=== PATIENT | female | born 1945 | race Caucasian/White ===

== ENCOUNTER 2023-07-18 08:47 | Inpatient (IN) | payer MEDICARE, OTHER ==
[2023-07-18] MEDS ORDERED: Sodium Chloride 0.9% 1,000 ML IV ONE (09:10)
[2023-07-18] MEDS ORDERED: Sodium Chloride 0.9% 10 ML Syringe FLUSH PRN (09:10)
[2023-07-18 09:42] LABS: HEMATOCRIT 41.6 % (37.0-47.0); MEAN CORPUSCULAR HEMOGLOBIN 30.2 pg (28.0-32.0); MEAN CORPUSCULAR HGB CONC 33.7 g/dl (32.0-36.0); MEAN CORPUSCULAR VOLUME 89.8 fl (83.0-99.0); MEAN PLATELET VOLUME 10.3 fl (9.4-12.3); PLATELET COUNT,PLT 162 K/mm3 (150-400); RED BLOOD CELL COUNT 4.63 M/mm3 (4.10-5.30); WHITE BLOOD CELL COUNT,WBC 9.89 K/mm3 (3.9-11.3)
[2023-07-18 09:57] LABS: INR 1.02; PROTHROMBIN TIME 10.9 SECONDS (9.7-12.0)
[2023-07-18] MEDS ORDERED: cefTRIAXone 2 GM in Sodium Chloride 0.9% 100 ML IV ONE (09:58)
[2023-07-18 10:04] LABS: ALANINE AMINOTRANSFERASE,ALT 24 U/L (14-59); ALBUMIN 3.6 g/dl (3.4-5.0); ALKALINE PHOSPHATASE 70 U/L (46-116); ANION GAP 13.1 (5-15); ASPARTATE AMNIOTRANSFERASE,AST 20 U/L (15-37); BLOOD UREA NITROGEN,BUN 10 mg/dL (7-18); BUN/CREATININE RATIO 14.3 (14-18); C-REACTIVE PROTEIN <0.2 mg/dL (<1.0); CALCIUM 8.8 mg/dL (8.5-10.1); CARBON DIOXIDE,CO2 27 mEq/L (21-32); CHLORIDE,CL 96 mEq/L (98-107); CREATININE 0.7 mg/dL (0.55-1.02); EST CRCL DRUG DOSING (CG) 54.79 mL/min; ESTIMATED GFR 88 mL/min (>60); GLUCOSE RANDOM 125 mg/dL (70-99); POTASSIUM,K 4.1 mEq/L (3.5-5.1); PROTEIN TOTAL,TP 7.4 g/dl (6.4-8.2); SODIUM,NA 132 mEq/L (136-145)
[2023-07-18] MEDS ORDERED: Albuterol/Ipratropium 3.0-0.5 MG/3 ML Neb Soln NEB ONE (10:06)
[2023-07-18] MEDS ORDERED: methylPREDNISolone Sodium Succinate 125 MG/2 ML SDV IVPUSH ONE (10:07)
[2023-07-18 10:09] LABS: LACTIC ACID 0.6 mmol/L (0.4-2.0)
[2023-07-18 10:20] LABS: CORONAVIRUS COVID-19 NAA NEGATIVE (NEGATIVE); INFLUENZA A NAA NEGATIVE (NEGATIVE); RESPIRATORY SYNCYTIAL VIR NAA NEGATIVE (NEGATIVE)
[2023-07-18 10:46] LABS: BAND PERCENT MAN 0 % (0-10); BASOPHILS PERCENT MAN 0 (0.1-1.2); EOSINOPHILS PERCENT MAN 1 % (0.7-5.8); LYMPHOCYTES % ATYPICAL MANUAL 0 %; LYMPHOCYTES PERCENT MAN 19 % (20-40); MONOCYTES PERCENT MAN 0 % (2-10)
[2023-07-18 10:47] LABS: PLATELET COUNT ESTIMATE ADEQUATE
[2023-07-18] MEDS ORDERED: Acetaminophen 325 MG Tab PO PRN (12:29)
[2023-07-18] MEDS ORDERED: oxyCODONE 5 MG Tab PO PRN (12:29)
[2023-07-18] MEDS ORDERED: Albuterol 0.083% 2.5 MG/3 ML Neb Soln NEB PRN (12:29)
[2023-07-18] MEDS ORDERED: Docusate Sodium 100 MG Cap PO PRN (12:29)
[2023-07-18] MEDS ORDERED: Polyethylene Glycol 3350 Powder 17 GM Packet PO PRN (12:29)
[2023-07-18] MEDS ORDERED: Ondansetron 4 MG/2 ML SDV IV PRN (12:29)
[2023-07-18] MEDS: Azithromycin 500 MG in Sodium Chloride 0.9% 250 ML IV SCH (13:34)
[2023-07-18] MEDS: Enoxaparin 40 MG/0.4 ML Syringe SUBCUT SCH (13:35)
[2023-07-18] MEDS: guaiFENesin/Dextromethorphan 100-10 MG/5 ML Soln 5 ML Cup PO SCH ×2 (14:22→21:55)
[2023-07-18] MEDS: Nicotine 14 MG/24 Hr Patch TRDERM SCH (14:22)
[2023-07-18] MEDS: Albuterol/Ipratropium 3.0-0.5 MG/3 ML Neb Soln NEB SCH ×2 (14:59→20:12)
[2023-07-18 17:22] LABS: SODIUM,URINE RANDOM 16 mEq/L (40-220)
[2023-07-18 19:19] LABS: OSMOLALITY,URINE 605 mosm/kg (400-1100)
[2023-07-18] MEDS ORDERED: Iopamidol 755 Mg/ML 100 ML Bottle IVPUSH ONE (19:28)
[2023-07-18] MEDS ORDERED: Sodium Chloride 0.9% 10 ML Syringe FLUSH ONE (19:28)
[2023-07-18] MEDS: Metoprolol Succinate 25 MG Tab.ER PO SCH (21:55)
[2023-07-19 05:34] LABS: ANION GAP 15.7 (5-15); BLOOD UREA NITROGEN,BUN 10 mg/dL (7-18); BUN/CREATININE RATIO 16.7 (14-18); CALCIUM 8.8 mg/dL (8.5-10.1); CARBON DIOXIDE,CO2 24 mEq/L (21-32); CHLORIDE,CL 98 mEq/L (98-107); CREATININE 0.6 mg/dL (0.55-1.02); EST CRCL DRUG DOSING (CG) 63.92 mL/min; ESTIMATED GFR 92 mL/min (>60); GLUCOSE RANDOM 138 mg/dL (70-99); MAGNESIUM 2.1 mg/dL (1.8-2.4); SODIUM,NA 133 mEq/L (136-145)
[2023-07-19 05:47] LABS: C-REACTIVE PROTEIN < 0.2 mg/dL (<1.0)
[2023-07-19 05:49] LABS: POTASSIUM,K 4.7 mEq/L (3.5-5.1)
[2023-07-19] MEDS: Albuterol/Ipratropium 3.0-0.5 MG/3 ML Neb Soln NEB SCH ×4 (05:55→20:30)
[2023-07-19 06:11] LABS: BASOPHILS PERCENT AUTO 0.1 % (0.0-1.0); HEMATOCRIT 39.1 % (37.0-47.0); HEMOGLOBIN 12.9 gm/dl (12.0-16.0); IMMATURE GRAN ABSOLUTE AUTO 0.07 K/mm3 (0.00-0.05); IMMATURE GRAN PERCENT AUTO 0.8 % (0.0-0.4); LYMPHOCYTES ABSOLUTE AUTO 1.1 K/mm3 (1.0-4.8); MEAN CORPUSCULAR HEMOGLOBIN 29.1 pg (28.0-32.0); MEAN CORPUSCULAR VOLUME 88.1 fl (83.0-99.0); MEAN PLATELET VOLUME 12.2 fl (9.4-12.3); MONOCYTES ABSOLUTE AUTO 0.4 K/mm3 (0.0-0.8); MONOCYTES PERCENT AUTO 4.7 % (0.0-8.0); NEUTROPHILS ABSOLUTE AUTO 7.4 K/mm3 (1.8-7.7); NEUTROPHILS PERCENT AUTO 82.4 % (41.0-71.0); PLATELET COUNT,PLT 90 K/mm3 (150-400); RED BLOOD CELL COUNT 4.44 M/mm3 (4.10-5.30); WHITE BLOOD CELL COUNT,WBC 8.93 K/mm3 (3.9-11.3)
[2023-07-19 07:20] LABS: SLIDE REVIEW ABNORMAL SMEAR
[2023-07-19] MEDS: guaiFENesin/Dextromethorphan 100-10 MG/5 ML Soln 5 ML Cup PO SCH ×3 (08:26→20:02)
[2023-07-19] MEDS: Lisinopril 20 MG Tab PO SCH (08:26)
[2023-07-19] MEDS: Cholecalciferol (Vitamin D3) 25 MCG Tab PO SCH (08:26)
[2023-07-19] MEDS: predniSONE 20 MG Tab PO SCH (08:26)
[2023-07-19] MEDS: Ezetimibe 10 MG Tab PO SCH (08:27)
[2023-07-19] MEDS: Ferrous Sulfate 324 MG Tab.EC PO SCH (08:27)
[2023-07-19] MEDS: Metoprolol Succinate 25 MG Tab.ER PO SCH ×2 (08:27→20:01)
[2023-07-19] MEDS: Aspirin 81 MG Tab.Chew PO SCH (08:27)
[2023-07-19] MEDS: Nicotine 14 MG/24 Hr Patch TRDERM SCH (08:28)
[2023-07-19] MEDS: Enoxaparin 40 MG/0.4 ML Syringe SUBCUT SCH (08:36)
[2023-07-19] MEDS ORDERED: amLODIPine 10 MG Tab PO SCH ×2 (09:00→09:45)
[2023-07-19] MEDS: cefTRIAXone 2 GM in Sodium Chloride 0.9% 100 ML IV SCH (10:38)
[2023-07-19] MEDS: Azithromycin 500 MG in Sodium Chloride 0.9% 250 ML IV SCH (12:12)
[2023-07-19] MEDS: Saccharomyces Boulardii (Probiotic) 250 MG Cap PO SCH (17:21)
[2023-07-20 05:18] LABS: ANION GAP 10.2 (5-15); BLOOD UREA NITROGEN,BUN 16 mg/dL (7-18); BUN/CREATININE RATIO 22.9 (14-18); C-REACTIVE PROTEIN <0.2 mg/dL (<1.0); CALCIUM 8.7 mg/dL (8.5-10.1); CARBON DIOXIDE,CO2 29 mEq/L (21-32); CHLORIDE,CL 100 mEq/L (98-107); CREATININE 0.7 mg/dL (0.55-1.02); EST CRCL DRUG DOSING (CG) 54.79 mL/min; ESTIMATED GFR 88 mL/min (>60); GLUCOSE RANDOM 110 mg/dL (70-99); MAGNESIUM 2.3 mg/dL (1.8-2.4); POTASSIUM,K 4.2 mEq/L (3.5-5.1); SODIUM,NA 135 mEq/L (136-145)
[2023-07-20 05:38] LABS: BASOPHILS PERCENT AUTO 0.1 % (0.0-1.0); HEMATOCRIT 36.9 % (37.0-47.0); HEMOGLOBIN 12.2 gm/dl (12.0-16.0); IMMATURE GRAN PERCENT AUTO 0.8 % (0.0-0.4); LYMPHOCYTES ABSOLUTE AUTO 1.2 K/mm3 (1.0-4.8); MEAN CORPUSCULAR HGB CONC 33.1 g/dl (32.0-36.0); MEAN CORPUSCULAR VOLUME 90.9 fl (83.0-99.0); MEAN PLATELET VOLUME 10.7 fl (9.4-12.3); MONOCYTES ABSOLUTE AUTO 1.2 K/mm3 (0.0-0.8); MONOCYTES PERCENT AUTO 9.4 % (0.0-8.0); NEUTROPHILS ABSOLUTE AUTO 10.3 K/mm3 (1.8-7.7); NEUTROPHILS PERCENT AUTO 80.7 % (41.0-71.0); PLATELET COUNT,PLT 161 K/mm3 (150-400); RED BLOOD CELL COUNT 4.06 M/mm3 (4.10-5.30); WHITE BLOOD CELL COUNT,WBC 12.73 K/mm3 (3.9-11.3)
[2023-07-20] MEDS: Albuterol/Ipratropium 3.0-0.5 MG/3 ML Neb Soln NEB SCH ×2 (06:06→09:12)
[2023-07-20] MEDS: predniSONE 20 MG Tab PO SCH (06:17)
[2023-07-20] MEDS: guaiFENesin/Dextromethorphan 100-10 MG/5 ML Soln 5 ML Cup PO SCH (06:17)
[2023-07-20] MEDS: Ferrous Sulfate 324 MG Tab.EC PO SCH (08:56)
[2023-07-20] MEDS: Ezetimibe 10 MG Tab PO SCH (08:57)
[2023-07-20] MEDS: Metoprolol Succinate 25 MG Tab.ER PO SCH (08:57)
[2023-07-20] MEDS: Cholecalciferol (Vitamin D3) 25 MCG Tab PO SCH (08:59)
[2023-07-20] MEDS: Lisinopril 20 MG Tab PO SCH (08:59)
[2023-07-20] MEDS: Saccharomyces Boulardii (Probiotic) 250 MG Cap PO SCH (08:59)
[2023-07-20] MEDS: Nicotine 14 MG/24 Hr Patch TRDERM SCH (09:00)
[2023-07-20] MEDS: Aspirin 81 MG Tab.Chew PO SCH (09:00)
[2023-07-20] MEDS: Enoxaparin 40 MG/0.4 ML Syringe SUBCUT SCH (09:00)
[2023-07-20] MEDS: cefTRIAXone 2 GM in Sodium Chloride 0.9% 100 ML IV SCH (11:15)
[2023-07-20] MEDS: Azithromycin 500 MG in Sodium Chloride 0.9% 250 ML IV SCH (12:16)
[2023-07-20 12:21] VITALS: PULSE 72
[2023-07-20 15:18] VITALS: BP 136/51
[2023-07-20] MEDS ORDERED: Saccharomyces Boulardii (Probiotic) 250 MG Cap PO SCH (17:00)
== END 2023-07-20 15:29 | disposition home or self-care (01) | DRG 194 ==
LOC: JD.ED 08:47 → JD.ICU 12:17
PROVIDERS: ADMIT Internal Medicine; ATTEND Internal Medicine
DX: J18.9 Pneumonia, unspecified organism (principal); E87.1 Hypo-osmolality and hyponatremia; I25.810 Atherosclerosis of coronary artery bypass graft(s) without angina pectoris; J44.1 Chronic obstructive pulmonary disease with (acute) exacerbation; J98.11 Atelectasis; J44.0 Chronic obstructive pulmonary disease with (acute) lower respiratory infection; R09.02 Hypoxemia; Z20.822 Contact with and (suspected) exposure to COVID-19; E78.5 Hyperlipidemia, unspecified; I35.0 Nonrheumatic aortic (valve) stenosis; I10 Essential (primary) hypertension; I73.9 Peripheral vascular disease, unspecified; E04.1 Nontoxic single thyroid nodule; Z79.82 Long term (current) use of aspirin; F17.210 Nicotine dependence, cigarettes, uncomplicated; Z79.899 Other long term (current) drug therapy; Z11.52 Encounter for screening for COVID-19; Z95.1 Presence of aortocoronary bypass graft; Z98.890 Other specified postprocedural states; Z95.2 Presence of prosthetic heart valve
CPT/HCPCS: 0241U; 36415; 71045; 71260; 71275; 80048; 80053; 83605; 83735; 83880; 83935; 84145; 84300; 84443; 84484; 85007; 85025; 85027; 85610; 86140; 87040; 93005; 94640; 94667; 94668; 97161; 93010; 99222; 99232; 99239; 99284; A9270-GY; J0456; J0696; J1650; J2930; J3490; J7030; J7050; J7512; J7620-GY; Q9967